=== PATIENT | female | born 1985 | race Caucasian/White ===

== ENCOUNTER → 2018-10-18 | Outpatient (CLI) | payer OTHER ==
[~2018-10-18] MED LIST: DAYPRO600 M1 PO
== END | disposition home or self-care (01) ==
LOC: RAD 03:04
DX: M79.644 Pain in right finger(s) (principal); Z87.81 Personal history of (healed) traumatic fracture

== ENCOUNTER → 2019-11-14 | Outpatient (CLI) | payer SELFPAY ==
[2019-11-14 09:56] LABS: BASO # 0.1 10*3/uL (0.0-0.1); BASO % 0.7 % (0.0-1.0); EOS # 0.2 10*3/uL (0.0-0.4); EOS % 2.1 % (1.0-4.0); HEMATOCRIT 42.6 % (37.0-47.0); HEMOGLOBIN 14.1 g/dl (12.0-16.0); LYMPH # 1.9 10*3/uL (1.3-4.4); LYMPH % 23.7 % (27.0-41.0); MEAN CELL VOLUME 102.4 fl (81.0-99.0); MEAN CORPUSCULAR HGB 33.9 pg (27.0-31.0); MEAN CORPUSCULAR HGB CONC 33.1 g/dl (33.0-37.0); MEAN PLATELET VOLUME 9.8 fl (9.6-12.3); MONO # 0.8 10*3/uL (0.1-1.0); MONO % 10.3 % (3.0-9.0); NEUT % 62.8 % (47.0-73.0); PLATELET COUNT AUTOMATED 306 10*3/uL (130-400); RED BLOOD COUNT 4.16 10*6/uL (4.10-5.10); RED CELL DISTRI WIDTH 12.5 % (0-14.5)
[2019-11-14 10:24] LABS: ALBUMIN 3.9 gm/dl (3.1-4.5); BUN 12 mg/dl (7-24); CHLORIDE 106 mmol/L (98-107); CHOLESTEROL 199 mg/dL (<200); CREATININE 0.84 mg/dL (0.55-1.02); PHOSPHOROUS 3.1 mg/dL (2.5-4.9); POTASSIUM 4.1 mmol/L (3.5-5.1); SGOT/AST 13 IU/L (3-35); SGPT/ALT 26 U/L (12-78); SODIUM 139 mmol/L (136-145); TOTAL PROTEIN 7.4 gm/dL (6.4-8.2)
[2019-11-14 10:27] LABS: ALKALINE PHOSPHATASE 84 U/L (45-117); HDL CHOLESTEROL 64 mg/dl (40-60); LDL CHOLESTEROL 108 mg/dL (9-159); TRIGLYCERIDES 137 mg/dl (<150); VLDL CHOLESTEROL 27 mg/dL (6-40)
== END | disposition home or self-care (01) ==
LOC: LAB 07:41
PROVIDERS: Family Medicine
DX: R00.2 Palpitations (principal)

== ENCOUNTER → 2019-11-23 | Outpatient (CLI) | payer SELFPAY ==
[2019-11-23 13:21] LABS: VITAMIN D, 25-HYDROXY 60.9 ng/mL (30-100)
== END | disposition home or self-care (01) ==
LOC: RESCLI 00:16
PROVIDERS: Internal Medicine
DX: Z76.89 Persons encountering health services in other specified circumstances (principal); F32.1 Major depressive disorder, single episode, moderate; F41.9 Anxiety disorder, unspecified; I44.0 Atrioventricular block, first degree; F41.0 Panic disorder [episodic paroxysmal anxiety]; I47.2 Ventricular tachycardia

== ENCOUNTER → 2019-11-24 | Outpatient (CLI) | payer SELFPAY ==
[2019-11-24 18:07] LABS: URINE AMPHETAMINES < 1000 (1000ng/ml); URINE BARBITURATES < 200 (200ng/ml); URINE BENZODIAZEPINES < 200 (200ng/ml); URINE CANNABINOIDS (THC) < 50 (50ng/ml); URINE COCAINE < 300 (300ng/ml); URINE METHADONE < 300 (300ng/ml); URINE OPIATES < 300 (300ng/ml)
[2019-11-24 18:09] LABS: URINE PHENCYCLIDINE < 25 (25ng/ml)
== END | disposition home or self-care (01) ==
LOC: LAB 17:33
PROVIDERS: Internal Medicine
DX: R00.0 Tachycardia, unspecified (principal)

== ENCOUNTER → 2021-11-04 | Outpatient (CLI) | payer OTHER | END | disposition home or self-care (01) | LOC: COVID19 15:56 | PROVIDERS: ATTEND Internal Medicine | DX: U07.1 COVID-19 (principal) ==